=== PATIENT | male | born 1940 | race Two or more races ===

== ENCOUNTER 2021-11-30 11:31 | Emergency (ER) | payer OTHER ==
[~2021-11-30] VITALS: Ht 170.2 cm; Wt 70.9 kg
[2021-11-30 11:47] VITALS: BP 116/71
== END 2021-11-30 15:31 | disposition left against medical advice (07) ==
LOC: ER 11:31
DX: Z76.0 Encounter for issue of repeat prescription (principal); Z53.21 Procedure and treatment not carried out due to patient leaving prior to being seen by health care provider